=== PATIENT | male | born 1985 | race Caucasian/White ===

== ENCOUNTER 2020-08-08 19:51 | Emergency (ER) | payer SELFPAY ==
[2020-08-08 20:22] VITALS: BP 134/72; PULSE 105; RESP 18; TEMP 36.2; O2SAT 98; BMI 22.0
--- NOTE | 2020-08-08 20:40 | ED_ITS ---
HPI - Nausea/Vomiting/Diarrhea General: Chief complaint: Nausea/Vomiting/Diarrhea Stated complaint: N/V, ABD PAIN - EXPOSURE TO STREP Time Seen by Provider: 08/08/20 20:29 History of Present Illness: HPI Narrative: Patient is a 35-year-old male who comes to the ED with diarrhea, abdominal cramping nausea and vomiting. Patient says symptoms started last night. He states that his kids have both had some recent viral GI symptoms and one with children who also had strep. He denies any fever, chills, sore throat, cough, congestion, shortness of breath. He says last night he started developing some abdominal cramping and diarrhea. He has only had 1 episode of emesis but does endorse having nausea. He states that his symptoms were improved.. His abdominal cramping has gotten better and he has been able to keep p.o. fluids down. His main reason for coming to the ED was to be seen by Provider And to get a note that clears him to work tomorrow. Denies any known Covid contact. Associated nausea: Yes Associated symtoms: Reports nausea; Denies change in vision, chest pain, dysuria, fatigue, headache(s) or palpitations Review of Systems Const: Denies: fever(s), chills or fatigue Eyes: Denies: change in vision or eye discomfort ENMT: Denies: throat pain, odynophagia, nasal discharge or nasal congestion Card: Denies: chest pain, palpitations, edema, swelling of feet/ankles, dyspnea on exertion or orthopnea Resp: Denies: dyspnea, productive cough or non-productive cough GI: Reports: abdominal pain (abdominal cramping), nausea, vomiting and diarrhea; Denies: constipation or hematochezia : Denies: flank pain, difficulty urinating, dysuria or hematuria Musc: Denies: neck pain, back pain or extremity swelling Skin/Breast: Denies: rash or new lesions Neuro: Denies: headache(s), numbness in extremities or weakness in extremities Physical Exam Const: COMMON NORMALS: no acute distress, patient oriented x3, healthy appearing and alert GENERAL APPEARANCE: cooperative and comfortable HENMT: COMMON NORMALS: normocephalic HEAD & SCALP: normocephalic MOUTH: Normal oral and palatal mucosa present THROAT: posterior oropharynx normal and uvula midline Eye: COMMON NORMALS: Equal, round and reactive pupils present PUPIL: Yes Equal, round and reactive pupils present Neck/C-Spine: COMMON NORMALS: supple GENERAL: Yes normal visual inspection Resp: COMMON NORMALS: normal respiratory effort, No retractions, No use of accessory muscles and clear to auscultation bilaterally AUSCULTATION: clear to auscultation bilaterally Cardio: COMMON NORMALS: regular rate, regular rhythm, S1 normal heart sound present, S2 normal heart sound present, No gallops present (Cardio), No clicks present (Cardio), No murmurs present (Cardio) and Peripheral pulses 2+ throughout RATE: regular rate RHYTHM: regular rhythm HEART SOUNDS: S1 normal heart sound present and S2 normal heart sound present PERIPHERAL PULSES: Peripheral pulses 2+ throughout GI: COMMON NORMALS: Normal to inspection, nondistended, normoactive bowel sounds present, Soft to palpation, non-tender and no masses PALPATION: Yes Soft to palpation : COMMON NORMALS: Yes no CVA tenderness BLADDER/KIDNEY EXAM: Yes no CVA tenderness Back/Pelvis: COMMON NORMALS: no CVA tenderness Extremity: COMMON NORMALS: normal to inspection Neuro: COMMON NORMALS: patient oriented x3 and moves all extremities SENSORIUM/ORIENTATION: Yes alert Skin: COMMON NORMALS: no rashes or lesions noted GENERAL SKIN EXAM: no rashes or lesions noted and dry skin Course Vital Signs: Vital signs: Vital Signs Temperature 97.1 F L 08/08/20 20:22 Pulse Rate 106 H 08/08/20 21:00 Respiratory Rate 18 08/08/20 21:00 Blood Pressure 129/78 08/08/20 21:00 Pulse Oximetry 99 08/08/20 21:00 MDM - Nausea/Vomiting/Diarrhea MDM Narrative: Medical decision making narrative: 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 Patient says symptoms started yesterday evening. He says that his symptoms have improved this evening, but he needs to be seen by medical provider to be cleared to go to work tomorrow, so he came to the ED for medical note. Denies any Covid contact and denies any fever, chills or any upper respiratory symptoms. Exam shows a healthy 35-year-old male appears in no acute distress or pain. He was able to keep p.o. fluids down while here in the ED. He was given some Zofran while here in the ED and then discharged home with note that clears him for work tomorrow. He was discharged with a prescription for some Zofran to take as needed for nausea and some Bentyl for his abdominal cramping and diarrhea. Patient told to drink plenty of fluids and stay hydrated. Return to ED precautions given. Follow-up with PCP in 7 to 10 days for reevaluation. Patient understood and agreed with plan. Discharge Plan Discharge Patient Disposition: Home Clinical Impression: Gastroenteritis Condition: Stable Prescriptions: New Zofran 4 mg tablet 4 mg PO Q8H Qty: 12 RF: 0 dicyclomine 20 mg tablet 20 mg PO QID Qty: 16 RF: 0 No Action ibuprofen 200 mg Tablet 200 - 400 mg PO Q6H PRN (Reason: PAIN/HEADACHE) RF: 0 Discharge Orders: Discharge ED (Routine); Ordered 08/08/20 Ordered By: Tucker Cobb Discharge Diet: Advance as tolerated and Clear Liquid Discharge Activity: Increase activity as tolerated Patient Instructions: Gastroenteritis (ED) Activity Restrictions/Additional Instructions: Follow-up with medical provider as directed in 7 to 10 days for reevaluation. Take medications as prescribed. Drink plenty of fluids and stay hydrated. Return to the ER or your medical provider if condition worsens. Please read and understand discharge instructions. If any questions, please ask. Stand Alone Forms: Work/School Release Coding Level of Care Code ED Airway Controller for Valentin Fwmelinda Exam Comprehensive
[2020-08-08] MEDS: ondansetron 2 mg/ML SDV 2 mL 4 MG IM (20:54)
[2020-08-08 21:00] VITALS: BP 129/78; PULSE 106; RESP 18; O2SAT 99
== END 2020-08-08 21:00 | disposition home or self-care (01) ==
PROVIDERS: Emergency Provider Physician Assistant
DX: K52.9 Noninfective gastroenteritis and colitis, unspecified (principal)
CPT/HCPCS: 96372; 99282; J2405

== ENCOUNTER → 2021-01-03 10:51 | Outpatient (BNVA) | payer OTHER, SELFPAY | PROVIDERS: Visit Provider Nurse Practitioner Family | DX: Z20.822 Contact with and (suspected) exposure to COVID-19 (principal) | CPT/HCPCS: 87635 ==

== ENCOUNTER → 2021-03-15 00:01 | Outpatient (BNVA) | payer SELFPAY | PROVIDERS: PCP Nurse Practitioner Family; Visit Provider Nurse Practitioner Family | DX: R53.83 Other fatigue (principal); E55.9 Vitamin D deficiency, unspecified; Z79.899 Other long term (current) drug therapy; Z13.6 Encounter for screening for cardiovascular disorders; D64.9 Anemia, unspecified; F41.9 Anxiety disorder, unspecified; F32.A Depression, unspecified; R00.0 Tachycardia, unspecified | CPT/HCPCS: 80053; 80061; 81003; 82306; 82607; 83036; 83550; 84439; 84443; 85025 ==

== ENCOUNTER → 2021-09-25 13:24 | Outpatient (BNVA) | payer SELFPAY | PROVIDERS: PCP Nurse Practitioner Family; Visit Provider Nurse Practitioner | DX: M25.571 Pain in right ankle and joints of right foot (principal) | CPT/HCPCS: 73610 ==

== ENCOUNTER 2022-12-05 10:27 | Emergency (ER) | payer SELFPAY ==
[2022-12-05 10:29] VITALS: BP 144/84; PULSE 102; RESP 18; TEMP 36.7; O2SAT 98; BMI 24.3
--- NOTE | 2022-12-05 10:51 | W.ED.ANXIETY ---
HPI - Anxiety General: Chief Complaint: Anxiety Stated Complaint: MHE Time Seen by Provider: 12/05/22 10:34 Source: patient Mode of arrival: ambulatory History of Present Illness: 37-year-old male presents to the emergency room with complaint of anxiety. He states at times has been disabling is unable to get out of his room or go to work. He has a history of service is not have access to [place] [facility] he has seen [facility] [place] in the past and has been on medications but is not currently taking anything. He admits to binge drinking last drink 4 days ago a sixpack of beer sizable amount of vodka. He has not had problems with withdrawal in the past he does state his drinking does seem to relieve his anxiety. This is intermittently been going on for months seems to have worsened lately. He states he has had passing thoughts of harming himself but never made a plan and has no intention or thought seriously about hurting himself he is denies being suicidal or homicidal at this time. MD complaint: anxiety Onset (ago): month(s) Severity: moderate Quality: constant Associated symptoms: Deny anorexia, chest pain, chills, confusion, diaphoresis, fever(s), headache(s), malaise, nausea, palpitations, short of breath, syncope, vomiting or weakness Review of Systems Const: Denies: fever(s), chills, fatigue, malaise or diaphoresis Card: Denies: chest pain, palpitations or syncope Resp: Denies: dyspnea, productive cough or non-productive cough GI: Denies: abdominal pain, nausea or vomiting : Denies: flank pain, dysuria, urinary frequency or urinary urgency Musc: Denies: neck pain or back pain Skin/Breast: Denies: rash or pruritus Neuro: Denies: headache(s) or confusion PFSH ED PFSH: Medical History Acute bacterial sinusitis Alcohol abuse Anemia Anxiety Anxiety and depression Back pain Chronic diarrhea Fatigue Hematuria Hematuria Hypertension screen Medication management Muscle spasm of back Psychiatric care Rectal bleeding Tachycardia Vitamin D deficiency Social History Smoking and tobacco status: current every day smoker Physical Exam Const: COMMON NORMALS: no acute distress GENERAL APPEARANCE: cooperative and comfortable ORIENTATION/CONSCIOUSNESS: Yes awake, Yes oriented to person, Yes oriented to place and Yes oriented to time HENMT: COMMON NORMALS: normocephalic, atraumatic and hearing grossly normal bilaterally HEAD & SCALP: normocephalic and atraumatic Resp: COMMON NORMALS: normal respiratory effort, No retractions, No use of accessory muscles and clear to auscultation bilaterally AUSCULTATION: clear to auscultation bilaterally Cardio: COMMON NORMALS: regular rate, regular rhythm and No murmurs present (Cardio) RATE: regular rate RHYTHM: regular rhythm GI: COMMON NORMALS: Soft to palpation and No hepatosplenomegaly present AUSCULTATION: Yes normoactive bowel sounds PALPATION: Yes Soft to palpation, No Tenderness to palpation present (GI), No Guarding due to palpation present (GI) and Yes No hepatosplenomegaly present Extremity: COMMON NORMALS: normal to inspection, capillary refill normal, no clubbing, cyanosis or edema, no calf tenderness and no pedal edema Neuro: SENSORIUM/ORIENTATION: Yes oriented to person, Yes oriented to place and Yes oriented to time Skin: COMMON NORMALS: no rashes or lesions noted GENERAL SKIN EXAM: no rashes or lesions noted Course Vital Signs: Vital signs: Vital Signs Temperature 98.1 F 12/05/22 10:29 Pulse Rate 102 H 12/05/22 10:29 Respiratory Rate 18 12/05/22 10:29 Blood Pressure 144/84 12/05/22 10:29 Pulse Oximetry 98 12/05/22 10:29 Oxygen Delivery Me thod Room Air 12/05/22 10:29 MDM - Anxiety Medical Decision Making Discussed with Dr. Gresham. He concurs with her assessment emergency room patient is not presenting imminent suicide risk. He would benefit for intervention for his anxiety. [facility] said he has limited access to services to help with alleviating his symptoms. We will discharge patient from the emergency room and have him brought to crisis stabilization. Medical Records I reviewed the patient's medical records. Discharge Plan Discharge Patient Disposition: Home Clinical Impression: Anxiety Condition: Stable Prescriptions: No Action No Known Home Medications Discharge Orders: Discharge ED (Routine); Ordered 12/05/22 Ordered By: Mat Washington Discharge Diet: Usual diet Discharge Activity: Increase activity as tolerated Patient Instructions: Opioid Safety, Pain Management Activity Restrictions/Additional Instructions: Discussed your case with the on-call psychiatrist will be discharged from the emergency room and directed to crisis stabilization will they will help you with receiving appropriate services. Coding Level of Care Code ED Developmental Behavioral Physician for Valentin Lehman
== END 2022-12-05 11:41 | disposition home or self-care (01) ==
PROVIDERS: Emergency Provider Family Medicine
DX: F41.9 Anxiety disorder, unspecified (principal)
CPT/HCPCS: 99283